=== PATIENT | female | born 2000 | race Caucasian/White ===

== ENCOUNTER 2023-12-20 13:56 | Emergency (ER) | payer OTHER, SELFPAY ==
[2023-12-20 14:01] VITALS: BP 120/83
--- NOTE | 2023-12-20 15:18 | ED.GENMED ---
History of Present Illness
<Roxane Persaud PA-C - Last Filed: 12/20/23 19:12>
General
Chief Complaint: Urinary Symptoms
Source: patient
Exam Limitations: none
Time Seen by Provider: 12/20/23 14:58
Nursing documentation reviewed up to this point in time: agreed with
History of Present Illness
History of Present Illness:
Patient is a 23 y.o female, at approximately 11 weeks gestation presenting to the emergency department due to intractable nausea/vomiting. Patient states that she has been unable to keep any food/liquid down over the past few days and feels
extremely weak. Today she states that she was unable to get out of bed. She has been suffering from chronic nausea and vomiting since early . Patient denies any abdominal pain/cramping, vaginal bleeding/spotting, fevers or chills.
However�patient does report dysuria since June. She has been treated for multiple UTIs with different antibiotics. She most recently completed a course of Augmentin yesterday.
Patient did have a ultrasound performed a few weeks ago documenting an intrauterine . She is scheduled for her first MICROPALEONTOLOGIST appointment tomorrow with [facility].
Past History
<Roxane Persaud PA-C - Last Filed: 12/20/23 19:12>
Past History
ED Past Medical History: None
ED Past Surgical History: None
Social History
Tobacco: Non-smoker
Alcohol: None
Drug: None
Review of Systems
<Roxane Persaud PA-C - Last Filed: 12/20/23 19:12>
Review of Systems
Allergies reviewed?: Yes
All Other Systems: ROS reviewed and negative except as documented in HPI and ROS
Phy Exam
<Roxane Persaud PA-C - Last Filed: 12/20/23 19:12>
Physical Exam
Physical Exam:
Vitals: Patient's vital signs are stable
General: Patient is well appearing, no acute distress
Skin: Warm and dry, no rashes or lesions
Head: Normocephalic, atraumatic
Eyes: Sclera nonicteric. EOMs intact. No nystagmus.
Throat: Dry mucous membranes. Protecting airway
Neck: Normal ROM, no cervical spine tenderness, no meningismus
Cardiac: Regular rate and rhythm, no murmurs.
Pulm: Normal respiratory effort, no wheezes, rales, rhonchi heard on exam.
Abdomen: Abdomen soft. No abdominal tenderness. No CVA tenderness
Extremities: No evidence of cyanosis or edema. Great distal pulses
Neuro: Grossly intact
Psychiatric: Normal affect.
Course
<Roxane Persaud PA-C - Last Filed: 12/20/23 19:12>
Orders/Labs/Results
Orders:
Orders
12/20/23 15:15
0.9% Sodium Chloride 1000 ml [Nss] 1,000 ml IV BOLUS
12/20/23 15:28
Basic Metabolic Panel Urgent
Complete Blood Count/With Diff Urgent
HCG, Beta Quantitative [Beta HCG Quantitative] Urgent
Is this a screen?: No
Urinalysis Reflex To Culture Urgent
Date Specimen was Collected: 12/20/23
Time Specimen was Collected: 15:23
Urine Microscopic Reflex Cult Urgent
Urine Culture Urgent
LUÍS Source: U
Specimen Description:
Date Specimen was Collected: 12/20/23
Time Specimen was Collected: 15:23
12/20/23 16:33
Ondansetron Injectable [Zofran] 4 mg IV NOW STA
12/20/23 18:16
Renal Only US [US Renal Only W/O Bladder] Urgent
Comment:
Reason For Exam: recurrent UTI
12/20/23 18:20
1st Trimester US [US 1st Trimester] Urgent
Comment:
Reason For Exam: recurrent UTI, dysuria
12/20/23 20:38
Nitrofurantoin Monohydrate [Macrobid] 100 mg PO NOW STA
Abnormal Lab Results
12/20/23
15:28
WBC 11.4 H 10^3/uL
(4.8-10.8)
RBC 4.04 L 10^6/uL
(4.20-5.40)
Hct 35.2 L %
(37.0-47.0)
MCH 31.9 H pg
(27.0-31.0)
Absolute Neuts (auto) 8.5 H 10^3/uL
(1.4-6.5)
Absolute Monos (auto) 1.2 H 10^3/uL
(0.1-0.6)
Lymphocytes % 14.1 L %
(20.5-51.1)
Monocytes % 10.2 H %
(1.7-9.3)
Carbon Dioxide 21 L mmol/L
(22-30)
Creatinine 0.5 L mg/dL
(0.6-1.0)
Urine Ketones 3+ A
(Negative)
Leukocyte Esterase Rfl 1+ A
(Negative)
Urine Bacteria (Reflex) Few A
(Negative)
12/20/23 15:28
12/20/23 15:28
Vital Signs
Initial and Last Documented VS:
Initial Vital Signs
Temp Pulse Resp BP Pulse Ox
97.7 F 95 18 120/83 100
12/20/23 14:01 12/20/23 14:01 12/20/23 14:01 12/20/23 14:01 12/20/23 14:01
Last Documented Vital Signs
Temp Pulse Resp BP Pulse Ox
97.7 F 71 16 111/62 99
12/20/23 14:01 12/20/23 20:33 12/20/23 20:33 12/20/23 20:33 12/20/23 20:33
<Kacie Macedo MD - Last Filed: 12/20/23 21:55>
Orders/Labs/Results
Orders:
Orders
12/20/23 15:15
0.9% Sodium Chloride 1000 ml [Nss] 1,000 ml IV BOLUS
12/20/23 15:28
Basic Metabolic Panel Urgent
Complete Blood Count/With Diff Urgent
HCG, Beta Quantitative [Beta HCG Quantitative] Urgent
Is this a screen?: No
Urinalysis Reflex To Culture Urgent
Date Specimen was Collected: 12/20/23
Time Specimen was Collected: 15:23
Urine Microscopic Reflex Cult Urgent
Urine Culture Urgent
LUÍS Source: U
Specimen Description:
Date Specimen was Collected: 12/20/23
Time Specimen was Collected: 15:23
12/20/23 16:33
Ondansetron Injectable [Zofran] 4 mg IV NOW STA
12/20/23 18:16
Renal Only US [US Renal Only W/O Bladder] Urgent
Comment:
Reason For Exam: recurrent UTI
12/20/23 18:20
1st Trimester US [US 1st Trimester] Urgent
Comment:
Reason For Exam: recurrent UTI, dysuria
12/20/23 20:38
Nitrofurantoin Monohydrate [Macrobid] 100 mg PO NOW STA
Abnormal Lab Results
12/20/23
15:28
WBC 11.4 H 10^3/uL
(4.8-10.8)
RBC 4.04 L 10^6/uL
(4.20-5.40)
Hct 35.2 L %
(37.0-47.0)
MCH 31.9 H pg
(27.0-31.0)
Absolute Neuts (auto) 8.5 H 10^3/uL
(1.4-6.5)
Absolute Monos (auto) 1.2 H 10^3/uL
(0.1-0.6)
Lymphocytes % 14.1 L %
(20.5-51.1)
Monocytes % 10.2 H %
(1.7-9.3)
Carbon Dioxide 21 L mmol/L
(22-30)
Creatinine 0.5 L mg/dL
(0.6-1.0)
Urine Ketones 3+ A
(Negative)
Leukocyte Esterase Rfl 1+ A
(Negative)
Urine Bacteria (Reflex) Few A
(Negative)
12/20/23 15:28
12/20/23 15:28
Vital Signs
Initial and Last Documented VS:
Initial Vital Signs
Temp Pulse Resp BP Pulse Ox
97.7 F 95 18 120/83 100
12/20/23 14:01 12/20/23 14:01 12/20/23 14:01 12/20/23 14:01 12/20/23 14:01
Last Documented Vital Signs
Temp Pulse Resp BP Pulse Ox
97.7 F 71 16 111/62 99
12/20/23 14:01 12/20/23 20:33 12/20/23 20:33 12/20/23 20:33 12/20/23 20:33
<Roxane Persaud PA-C - Last Filed: 12/20/23 19:12>
MDM/Problems Addressed
Differential Diagnosis Includes:
Not limited to: Hyperemesis gravidarum, dehydration, UTI, kidney stone
MDM/Problems Addressed:
23-year-old female at approximate level weeks gestation presenting to the emergency department with intractable nausea, vomiting and dysuria. Patient reports feeling very dehydrated, not able to tolerate any p.o. intake over the past 2 days.
Patient feels weak. Patient reports frequent UTIs over the past 6 months on multiple antibiotics. Did recently stop Augmentin after 7-day course about 5 days ago. Recent urine culture performed 5 days ago, as well at urgent care. Patient has had
documented intrauterine . She will follow-up with MICROPALEONTOLOGIST for first appointment tomorrow morning. Patient's vital signs are stable, she is afebrile. Physical exam as above. Patient is well-appearing, in no apparent distress. She is
nontoxic-appearing. Patient does have somewhat dry mucous membranes. Abdomen soft and nontender. Will check basic labs, urine. Will give IV fluids. Did discuss with MICROPALEONTOLOGIST on-call who recommend Zofran. Will closely monitor and reassess.
Chronic conditions affecting care:
Frequent UTIs
<Roxane Persaud PA-C - Last Filed: 12/20/23 19:12>
*Pulse Oximetry
Patient hypoxic: no
*EKG
Interpreted by ED Provider?: NA
*Family Literacy Coordinator Interpretation
Rate: Family Literacy Coordinator- N/A
*Critical Care Note
Total Time (30-74mins, 75-104mins- exclusive of procedures): Not Applicable
<Kacie Macedo MD - Last Filed: 12/20/23 21:55>
*Radiology
Radiology exam reviewed: radiology read reviewed
<Roxane Persaud PA-C - Last Filed: 12/20/23 19:12>
Update Note
Update Note:
Update: Labs noted. Mild leukocytosis of 11.4�likely reactive. Basic labs out any significant abnormalities. Urine with no signs of definitive acute infection at this time. Patient does feel better following Zofran and fluids. She was able to
tolerate a few sips of p.o. water and crackers. Patient was able to locate her culture results from last week which were unfortunately positive for for E. coli despite completion of antibiotic therapy w/ Augmentin. Given evidence of persistent
positive urine culture despite multiple rounds of antibiotic therapy�will check ultrasound of kidneys to ensure no obstructive process. Will plan to discuss case with MICROPALEONTOLOGIST on-call given recurrent UTIs not responding to antibiotic therapy in early
.
<Kacie Macedo MD - Last Filed: 12/20/23 21:55>
Update Note
Update Note:
Update: Labs noted. Mild leukocytosis of 11.4�likely reactive. Basic labs out any significant abnormalities. Urine with no signs of definitive acute infection at this time. Patient does feel better following Zofran and fluids. She was able to
tolerate a few sips of p.o. water and crackers. Patient was able to locate her culture results from last week which were unfortunately positive for for E. coli despite completion of antibiotic therapy w/ Augmentin. Given evidence of persistent
positive urine culture despite multiple rounds of antibiotic therapy�will check ultrasound of kidneys to ensure no obstructive process. Will plan to discuss case with MICROPALEONTOLOGIST on-call given recurrent UTIs not responding to antibiotic therapy in early
.
Spoke to Dr. Errol Moya who recommended Zofran for nausea. We will proceed with Macrobid for possible acute UTI. Patient due to see her OB tomorrow morning. We have sent a urine culture from today
ED Attending Note
<Roxane Persaud PA-C - Last Filed: 12/20/23 19:12>
-
Portions of this chart may have been created with voice recognition software.� Occasional wrong word or��sound alike� substitutions may have occurred due to the inherent limitations of voice recognition software.
<Kacie Macedo MD - Last Filed: 12/20/23 21:55>
ED Attending Note
Patient seen and examined by attending physician: Yes
I performed the substantive portion of visit, reviewed & personally made and approve the management plan that is documented in note by myself or EDWARD.: Yes
ED Attending Note:
Patient appears well and comfortable. States her nausea is much better with Zofran and drinking fluids. Patient recounts a history of frequent urinary tract infections. Reports that she just finished Augmentin 5 days ago. Patient was able to
pull up urine culture report from 12/14/2023 which shows positive E. coli sensitive to several agents including Augmentin. Given that patient keeps getting frequent UTIs, I made a decision to have patient undergo an ultrasound to check for kidney
stones or any other abnormalities. Case will also be discussed with the shellfish processing laborer on-call given that patient is first trimester and has a recurrent UTI. On exam, patient is smiling and appears in no acute distress. Her lungs are
clear. Her abdomen is soft and nontender. She appears nontoxic and very well.
Discharge Plan
Departure
Patient Disposition: Home (Routine Discharge)
Date of Disposition: 12/20/23
Time of Disposition: 20:39
Patient with high blood pressure during this ER visit?: No
Condition: Good
Covid-19: Not Applicable
Discharge Problem:
Nausea & vomiting, UTI (urinary tract infection)
Instructions: Urinary Tract Infection, Adult (DC), Hyperemesis Gravidarum (DC)
Prescriptions:
New
nitrofurantoin monohyd/m-cryst [Macrobid] 100 mg capsule
100 mg PO BID Qty: 13 0RF
ondansetron 4 mg tablet,disintegrating
4 mg PO TID PRN (Reason: nausea and vomiting) Qty: 10 0RF
No Action
Loratadine Allergy:
1 tab PO DAILY
psyllium husk (aspartame) [Metamucil Fiber Singles] 1 PACKET powder in packet
1 packet PO DAILY Qty: 10 0RF
Referrals:
Donald Jones MD [Family Provider] -
Activity Restrictions/Additional Instructions:
RETURN TO THE EMERGENCY DEPARTMENT WITH ANY FEVERS, INTRACTABLE NAUSEA/VOMITING, SIGNS OF SEVERE DEHYDRATION, ABDOMINAL PAIN/CRAMPING, VAGINAL BLEEDING, LIGHTHEADEDNESS/DIZZINESS, OR ANY OTHER CONCERNS
-It is important to stay well-hydrated. You should try and eat a bland diet. You can take Zofran up to every 8 hours as needed for persistent nausea/vomiting
-It is very important you follow-up with your MICROPALEONTOLOGIST as scheduled tomorrow morning.
Monitor your symptoms closely and return to the emergency department with any acute worsening/new symptoms.
Interventions
Interventions:
*Risk Screen - Suicide Last Done: 12/20/23 15:45
*General Assessment Last Done: 12/20/23 15:45
*Neglect/Abuse Screening Last Done: 12/20/23 15:45
ED- Fall Risk Assessment Last Done: 12/20/23 15:45
*ED COVID-19 Vaccine History Last Done: 12/20/23 15:45
*Nursing Disposition Last Done: 12/20/23 21:06
ED-Female Genitourinary Assessment Last Done: 12/20/23 15:45
Discharge Date and Time
Discharge Date/Time: 12/20/23 21:07
Print Language: WOLOF
[2023-12-20] MEDS: NSS 1000 IV (15:29)
[2023-12-20 15:30] VITALS: BMI 23.8
[2023-12-20 15:48] LABS: Urine Albumin Trace (Neg - Trace); Urine Bilirubin Negative (Negative); Urine Character Clear (Clear); Urine Color Yellow; Urine Glucose Negative (Negative); Urine Ketone 3+ (Negative); Urine Leukocyte 1+ (Negative); Urine Nitrite Negative (Negative); Urine Occult Blood Negative (Negative); Urine Urobilinogen Negative (Neg - 1+)
[2023-12-20 15:49] LABS: % Basophils 0.2 % (0-2); % Eosinophils 0.7 % (0-6); % Immature Granulocytes 0.3 % (0-0.5); % Lymphocytes 14.1 % (20.5-51.1); % Monocytes 10.2 % (1.7-9.3); % Neutrophils 74.5 % (42.2-75.2); Absolute Eosinophils 0.1 10^3/uL (0-0.7); Absolute Lymphocytes 1.6 10^3/uL (1.2-3.4); Absolute Monocytes 1.2 10^3/uL (0.1-0.6); Absolute Neutrophils 8.5 10^3/uL (1.4-6.5); Hematocrit 35.2 % (37.0-47.0); Hemoglobin 12.9 g/dL (12.0-16.0); Mean Corp Hgb Conc. 36.6 g/dL (33.0-37.0); Mean Corpuscular Hgb 31.9 pg (27.0-31.0); Mean Corpuscular Volume 87.1 fL (81.0-99.0); Mean Platelet Volume 10.4 fL (7.4-10.4); Nucleated Red Blood Cells % 0 %; Platelet Count 266 10^3/uL (130-400); Red Blood Cell Count 4.04 10^6/uL (4.20-5.40); Red Cell Dist. Width 12.5 % (11.5-14.5); White Blood Cell Count 11.4 10^3/uL (4.8-10.8)
[2023-12-20 16:00] VITALS: BP 108/75
[2023-12-20 16:02] LABS: Blood Urea Nitrogen 8 mg/dl (7-17); Calcium 9.8 mg/dl (8.4-10.2); Carbon Dioxide 21 mmol/L (22-30); Chloride 102 mmol/L (98-107); Estimated Creatinine Clearance > 125 ml/min; Glucose 83 mg/dl (70-99); Sodium 136 mmol/L (135-145); eGFR > 60.00
[2023-12-20 16:04] LABS: Urine Urothelial Cell 0-2 /LPF (FEW)
[2023-12-20 16:05] LABS: Urine Amorphous Seen; Urine Bacteria Few (Negative); Urine Red Blood Cell None Seen /HPF (0-2); Urine White Cell 0-2 /HPF (0-5)
[2023-12-20] MEDS: ZOFRAN 4 MG IV (16:52)
[2023-12-20 19:00] VITALS: BP 103/71
--- NOTE | 2023-12-20 19:00 | EDRN ---
Report received, patient in ultrasound
[2023-12-20 20:33] VITALS: BP 111/62
--- NOTE | 2023-12-20 20:34 | EDRN ---
In with patient informed her all her results are back waiting on provider to go over results and make a plan, patient reports feeling better
[2023-12-20] MEDS: MACROBID 100 MG PO (20:50)
== END 2023-12-20 21:07 | disposition home or self-care (01) ==
LOC: EMR 13:56
PROVIDERS: Physician Assistant; EMERGENCY PHYSICIAN Emergency Medicine; FAMILY PHYSICIAN Family Medicine
DX: O21.9 Vomiting of pregnancy, unspecified (principal); O23.41 Unspecified infection of urinary tract in pregnancy, first trimester; N39.0 Urinary tract infection, site not specified; Z3A.11 11 weeks gestation of pregnancy
CPT/HCPCS: 99284; 96374; 96361; 76775; 76801; 80048; 81003; 81015; 84702; 85025; 87086